=== PATIENT | male | born 1950 | race Hispanic/Latino ===

== ENCOUNTER 2025-02-21 05:21 | Day surgery (SDC) | payer OTHER, BC ==
[2025-02-17 11:01] LABS: Absolute Lymphocytes (CBC) 1.8 K/uL (0.7-4.9); Hematocrit 48.1 % (39.6-49.0); Hemoglobin 16.0 g/dL (13.6-17.9); MCH 28.8 pg (27.0-35.0); MCHC 33.3 g/dL (32.0-36.0); MCV 86.5 fL (80-100); MPV 8.4 fL (7.6-11.3); Nucleated RBC Absolute Count 0.0 (0-0); Nucleated Red Blood Cells % 0.1 % (0-0); RBC Red Blood Cell Count 5.56 M/uL (4.33-5.43); White Blood Count 9.10 thou/uL (4.3-10.9)
[2025-02-17 11:08] LABS: PT Prothrombin Time 13.0 SECONDS (10-13.0); Protime INR 1.16
[2025-02-17 11:23] LABS: Urine Microscopic Reflex YN NO UMIC
[2025-02-21] MEDS: Oxycodone HCl/Acetaminophen 5/325 MG TAB ONE (06:05)
[2025-02-21] MEDS: ACETAMINOPHEN 500 MG TAB ONE (06:05)
[2025-02-21] MEDS: CELECOXIB 100 MG CAPSULE ONE (06:05)
[2025-02-21] MEDS ORDERED: NA CHLORIDE 0.9% 1,000 ML ONE (06:05)
[2025-02-21] MEDS: GABAPENTIN 100 MG CAP ONE (06:05)
[2025-02-21] MEDS ORDERED: LIDOCAINE 1% MPF 5 ML VIAL ONE (06:08)
[2025-02-21] MEDS ORDERED: EPINEPHRINE 1 MG/ML VIAL ONE (06:09)
[2025-02-21] MEDS ORDERED: FENTANYL CITR 100 MCG/2 ML ONE (06:09)
[2025-02-21] MEDS ORDERED: BUPIVACAINE 0.25% PF 30 ML VIAL ONE (06:09)
[2025-02-21] MEDS ORDERED: BUPIVACAINE 0.5% PF 10 ML VIAL ONE (06:09)
[2025-02-21] MEDS ORDERED: TRANEXAMIC ACID 1,000 MG/10 ML VIAL IV ONE (06:13)
[2025-02-21 06:18] LABS: ALT/SGPT 18.0 U/L (16-61); AST/SGOT 11.0 U/L (15-37); Albumin 3.0 g/dL (3.4-5.0); Albumin/Globulin Ratio 0.7 (1.1-1.8); Alkaline Phosphatase 76.0 U/L (45-117); Anion Gap 10.3 mEq/L (5.0-15.0); BUN Blood Urea Nitrogen 16.0 mg/dL (7-18); Globulin 4.2 g/dL (2.3-3.5); Glucose Level 150.0 mg/dL (74-106); Potassium 3.3 mEq/L (3.5-5.1)
[2025-02-21] MEDS ORDERED: DEXMEDETOMIDINE HCL 200 MCG/2 ML VIAL ONE (06:55)
[2025-02-21] MEDS ORDERED: MAGNESIUM SULFATE 1 gm IVPB 1 GM/100 ML BAG IV ONE (06:55)
[2025-02-21] MEDS ORDERED: KETAMINE HCL IN 0.9 % NACL 50 MG/5 ML SYRINGE IV ONE (07:07)
[2025-02-21] MEDS ORDERED: ONDANSETRON 4 MG/2 ML VIAL ONE (07:07)
[2025-02-21] MEDS ORDERED: LIDOCAINE 2% MPF 5 ML VIAL ONE (07:07)
[2025-02-21] MEDS: CEFAZOLIN SODIUM 2 GM/VIAL ONE (07:32)
[2025-02-21] MEDS: NA CHLORIDE 0.9% 1,000 ML ONE (08:40)
--- NOTE | 2025-02-21 10:05 | P.BOP ---
Preoperative diagnosis: left knee arthritis Postoperative diagnosis: same Primary procedure: left total knee arthoplasty Estimated blood loss: 50 ccs Anesthesia: General Transferred to: Recovery Room Condition: Good
[2025-02-21] MEDS ORDERED: HYDROCODONE/APAP 7.5/325 MG TAB PO PRN (10:07)
[2025-02-21] MEDS ORDERED: ONDANSETRON 4 MG/2 ML VIAL IV PRN (10:07)
--- NOTE | 2025-02-21 10:36 | OP ---
Date of Procedure: 02/21/2025 Surgeon: Antonio Allen MD Preoperative Diagnosis: Left knee arthritis. Postoperative Diagnosis: Left knee arthritis. Procedure: Left knee total knee arthroplasty using the [employer] total knee system from [employer]. Estimated Blood Loss: 100 cc. Complications: There were no complications. Specimens: No pathology or specimens sent other than perhaps fragments of the knee. Indications For Procedure: Mr. Donaldson is a 74-year-old male who underwent a right total knee arthropl asty by me some time ago and did very well. He and his family requested left total knee arthroplasty as conservative management has not been helpful. He was previously scheduled for this, but unfortun ately had scratches on the knee. He was rescheduled for today. Risks, benefits, and alternatives we re reviewed and the patient agrees to proceed. Description Of Procedure: The patient was taken to the operating room. He has had a previous block in the holding area. General anesthesia was easily obtained by Anesthesia staff. Following this, we ll-padded tourniquet was placed on superior left thigh. Left lower extremity was then prepped and dr aped in the usual sterile fashion for the procedure. The knee was then flexed and exsanguinated wit h an Koby wrap. Tourniquet was raised. Following this, a standard incision was taken down carefully through skin and soft tissues. Meticulous hemostasis being maintained using Bovie electrocautery. T his leads down to the appropriate level which was then retracted to expose extensor mechanism. The s uperior pole of patella was then located and marked and medial parapatellar arthrotomy was then done using standard fashion with liberation of approximately 60 cc of normal-appearing synovial fluid. Fo llowing this, the patella was everted. Some fat pad was removed on visualization and the medial late ral menisci removed as well as ACL, some of being extremely arthritic. Also with a very large medial deficit causing valgus and it also does not come to full extension. Osteophytes were removed using a rongeur to allow for better visualization and the intramedullary alignment guide was then placed. The femur was cut. It was then sized, following sizing to a size 10. The remainder of the femoral c uts were completed. Attention was then turned to the tibia and it was cut to the appropriate varus, valgus, as well as depth. Tibia was then measured and found to be a size F. After this, the trial f emur and trial tibia were then placed with a size 10 poly. This appeared to be very good, comes to f ull extension, full flexion, and appears to be well balanced. Patella appeared to glide normally. A ttention was then turned to the patella, which was then calipered and cut and then trial patella was then placed. It glides excellently. After this, the trial components were removed. The lugs were t hen drilled prior to removal of the femur and the tibia was then reamed and punched. All surfaces we re prepped for cementation. After this, all the final components with the exception of the polyethyl irena were then placed with removal of any unsupported cement. It was kept in extension with the trial polyethylene until cement was hardened. After this, the trial polyethylene was removed because this does appear to be appropriately sized and patella glides correctly. The final polyethylene was then placed. This comes to full extension, full flexion, appears to be balanced. The patella glides wel l. The wound was again irrigated and the extensor mechanism was closed using heavy Ethibond sutures. It was again irrigated and skin was closed using 2-0 Vicryl followed by chilo. The patient was t hen placed in a well-padded sterile dressing, awakened, taken to recovery room in good condition. Th ere were no complications. /ADRIANE Voice ID: [id number] Report ID: [id number]
--- NOTE | 2025-02-21 13:16 | P.HP ---
Patient History Date of Service: 02/21/25 History of Present Illness: 74-year-old male with a past medical history of CAD, diabetes mellitus, hypertension, hypercholesterolemia now status post total left knee replacement by . Patient is seen in PACU very sleepy. Vitals are stable. No family at bedside. Discussed with nursing staff. Left knee is in immobilizer. He awakes to verbal stimuli however falls right back asleep. Allergies No Known Allergies Allergy (Verified 02/17/25 10:40) Home Medications: Carvedilol [Coreg] 12.5 mg PO DAILY 05/16/24 Clopidogrel Bisulfate [Plavix] 75 mg PO DAILY 05/16/24 Donepezil HCl 10 mg PO DAILY 05/16/24 Levothyroxine Sodium 75 mcg PO DAILY 05/16/24 Losartan Potassium 25 mg PO DAILY 05/16/24 Metformin HCl [Metformin HCl ER] 750 mg PO DAILY 05/16/24 Pravastatin Sodium 40 mg PO DAILY 05/16/24 Aspirin 81 mg PO DAILY 12/23/24 - Past Medical/Surgical History Has patient received pneumonia vaccine in the past: Yes Diabetic: Yes -: DM -: HTN -: Hypothyroidism -: Dementia -: CAD -: quadruple bypass 2011 or 2012 -: left knee arthroscopy -: Right knee arthroplasty - Family History Brother -: Other (see notes) Notes: dementia Father -: Heart disease, Diabetes Mother -: Diabetes, Cancer - Social History Smoking Status: Never smoker Alcohol use: Yes CD- Drugs: No Caffeine use: Yes Place of Residence: Home Review of Systems is unable to be obtained Physical Examination - Vital Signs Temperature: 97.6 F Blood Pressure: 101/61 Pulse: 58 Respirations: 18 Pulse Ox (%): 96 - Physical Exam General: Obese HEENT: Normocephalic Neck: Supple Respiratory: Clear to auscultation bilaterally Cardiovascular: No edema Capillary refill: <2 Seconds Gastrointestinal: Normal bowel sounds Musculoskeletal: No clubbing, Other (Left knee in immobilizer) Integumentary: No rashes - Studies Laboratory Data (last 24 hrs) 02/21/25 05:50 Sodium 140 Potassium 3.3 L BUN 16 Creatinine 0.87 Glucose 150 H Total Bilirubin 1.3 H AST 11 L ALT 18 Alkaline Phosphatase 76 Assessment and Plan - Plan s/p left total knee replacement Type 2 diabetes mellitus Essential hypertension Hypercholesterolemia Coronary artery disease Dementia Hypothyroidism Postop day 0 Continue pain control with Krypton Continue Ancef Resume home blood pressure medication, losartan, Coreg Continue levothyroxine PT consult Resume aspirin, Plavix, statin CBC and CMP in the a.m. DVT prophylaxis with Lovenox - Advance Directives Does patient have a Living Will: No Does patient have a Durable POA for Healthcare: No
[2025-02-21 14:01] VITALS: BMI 36.1
[2025-02-21] MEDS: CEFAZOLIN 1 GM in NA CHLORIDE 0.9% 50 ML IVPB SCH (18:05)
[2025-02-21 20:08] VITALS: O2SAT 93
[2025-02-22 04:40] LABS: Absolute Lymphocytes (CBC) 0.9 K/uL (0.7-4.9); Hematocrit 38.7 % (39.6-49.0); Hemoglobin 13.3 g/dL (13.6-17.9); MCH 29.6 pg (27.0-35.0); MCHC 34.5 g/dL (32.0-36.0); MCV 85.9 fL (80-100); MPV 8.3 fL (7.6-11.3); Nucleated RBC Absolute Count 0.0 (0-0); Nucleated Red Blood Cells % 0.2 % (0-0); RBC Red Blood Cell Count 4.50 M/uL (4.33-5.43); White Blood Count 13.60 thou/uL (4.3-10.9)
[2025-02-22 04:50] LABS: ALT/SGPT 16 U/L (16-61); AST/SGOT < 10 U/L (15-37); Albumin 2.4 g/dL (3.4-5.0); Albumin/Globulin Ratio 0.6 (1.1-1.8); Alkaline Phosphatase 77 U/L (45-117); Anion Gap 10.7 mEq/L (5.0-15.0); BUN Blood Urea Nitrogen 18 mg/dL (7-18); Globulin 3.8 g/dL (2.3-3.5); Glucose Level 236 mg/dL (74-106); Potassium 3.7 mEq/L (3.5-5.1)
[2025-02-22] MEDS: ENOXAPARIN 30 MG/0.3 ML SQ SCH (05:39)
[2025-02-22 05:41] LABS: Differential Total Cells Count 100; Segmented Neutrophils 62 % (40-80)
[2025-02-22 05:42] LABS: Blood Morphology Comment NOT SEEN (NOT SEEN)
[2025-02-22] MEDS: LOSARTAN POTASSIUM 50 MG TABLET PO SCH (08:20)
[2025-02-22] MEDS: CLOPIDOGREL 75 MG TABLET PO SCH (08:20)
[2025-02-22] MEDS: LEVOTHYROXINE SOD 0.075 MG TAB PO SCH (08:20)
[2025-02-22] MEDS: DONEPEZIL HCL 5 MG TAB PO SCH (08:21)
[2025-02-22] MEDS: ASPIRIN EC 81 MG TAB PO SCH (08:21)
--- NOTE | 2025-02-22 09:11 | P.PN ---
Subjective Date of Service: 02/22/25 Subjective: Improving (Postop day #1 status post left total knee arthroplasty. Patient is currently working with therapy.) Physical Examination - Vital Signs Temperature: 97.8 F Blood Pressure: 107/61 Pulse: 57 Respirations: 16 Pulse Ox (%): 96 - Physical Exam General: Acute distress, Obese, Other (Physically deconditioned) HEENT: Atraumatic, Normocephalic Respiratory: Clear to auscultation bilaterally, Normal air movement Cardiovascular: No edema, Normal pulses, Regular rate/rhythm, Normal S1 S2 Neurological: Abnormal affect - Studies Laboratory Data (last 24 hrs) 02/22/25 02/22/25 04:07 04:07 WBC 13.60 H Hgb 13.3 L Hct 38.7 L Plt Count 259 Sodium 144 Potassium 3.7 BUN 18 Creatinine 1.11 Glucose 236 H Total Bilirubin 0.4 AST < 10 L ALT 16 Alkaline Phosphatase 77 Assessment And Plan - Plan Assessment Patient is 74-year-old female with a past medical history of coronary disease status post PCI, Type 2 diabetes mellitus and hypertension. Patient is status post left total knee arthroplasty for osteoarthritis. Admitted to medicine postoperatively. He is currently undergoing therapy. Left knee osteoarthritis Coronary disease status post PCI and quadruple bypass Type 2 diabetes mellitus Hypertension Hyperlipidemia Dementia Plan: Continue PT/OT while in house Multimodal pain regimen Cefazolin for perioperative infection prophylaxis Continue dual antiplatelet therapy and high intensity statin DVT prophylaxis Routine home meds including antihypertensives
[2025-02-22 12:49] VITALS: BP 138/93; TEMP 97.9
[2025-02-22] MEDS ORDERED: ATORVASTATIN 10 MG TAB PO SCH (21:00)
== END 2025-02-22 14:46 | disposition home health service (06) ==
LOC: SUATTDRO 05:21 → OR 05:21 → 2ND 10:07 → OR 02-22 14:46
PROVIDERS: ATTEND Internal Medicine
PROC: 0SRD0J9 Replacement of Left Knee Joint with Synthetic Substitute, Cemented, Open Approach (ICD-10-PCS; principal; 2025-02-21 07:00)
DX: M17.2 Bilateral post-traumatic osteoarthritis of knee (principal); E11.9 Type 2 diabetes mellitus without complications; I10 Essential (primary) hypertension; E78.00 Pure hypercholesterolemia, unspecified; I25.10 Atherosclerotic heart disease of native coronary artery without angina pectoris; E03.9 Hypothyroidism, unspecified; F03.90 Unspecified dementia, unspecified severity, without behavioral disturbance, psychotic disturbance, mood disturbance, and anxiety
CPT/HCPCS: 85025 ×2; 36415 ×2; 85610; 82947 ×7; 88305; 88311; 85730; 81003; 80053 ×2; 97116 ×3; 97139; 97161; 97530 ×4; 94010 ×2; 27447; J3490; C1776 ×3; J2704 ×2; J3475; J1100 ×2; J2003 ×2; J1650; J3010; J0171; J2405; J7030 ×2; J0690 ×3